=== PATIENT | male | born 1940 | race Caucasian/White ===

== ENCOUNTER 2016-07-26 19:52 | Inpatient (IN) | payer MEDICARE, BC ==
--- NOTE | ~2016-07-26 | CT71 ---
[facility] A Service of [facility] RADIOLOGY TEXT RESULTS PATIENT: DORCAS BOYKIN LOCATION: A : 38 UNIT #: [id number] AGE: [address]: Petar Sandoval MD SEX: M ORDER DR: [id number] [facility] [address]. [place], [place] [address] [id number] I MR#: [id number] Acc #: [id number] NAME: DORCAS BOYKIN. : 1940 SEX: M STUDY DATE/TIME: 07/26/2016 19:41 UNIT: [facility] ROOM: [facility] STUDY DESCRIPTION: CT Head Wo Contrast Attending Physician: Petar Sandoval M.D. Referring Physician: Petar Sandoval M.D. Ordering Physician: Danielle Rondon M.D. Primary Care Physician: Petar Sandoval M.D. MEDICAL IMAGING REPORT This report is preliminary unless electronic signature is present EXAM Noncontrast head CT HISTORY Weakness since 07/25/2016, fell today, confusion. TECHNIQUE This CT examination was performed with one or more of the following radiation dose reduction techniques: automatic exposure control, adjustment of mA and/or kV according to patient size, and iterative reconstruction. FINDINGS Axial noncontrast imaging of the brain demonstrates encephalomalacia left parietal lobe probably related to old vascular insult. Left thalamic lacunar infarct. No mass or hemorrhage. No abnormal extraaxial fluid collections. Right maxillary sinus air-fluid level could represent superimposed sinusitis. There is bilateral ethmoid sinus mucosal disease with some fluid levels, also suggesting acute sinusitis. Mastoids and middle ear cavities unremarkable. IMPRESSION 1. No acute intracranial abnormality identified. 2. Focal encephalomalacia left parietal lobe compatible with old vascular insult. There is also an old left thalamic lacunar infarct. 3. Right maxillary sinus air-fluid level as well as bilateral ethmoid sinus air and fluid, suggesting sinusitis. Dictated by.Bashir Apple M.D. [facility] A Service of [facility] RADIOLOGY TEXT RESULTS PATIENT: DORCAS BOYKIN LOCATION: [place] [address] : 38 UNIT #: [id number] AGE: [address]: Petar Sandoval MD SEX: M ORDER DR: THIS IS AN ELECTRONICALLY VERIFIED REPORT Marilee Apple M.D. at 07/27/2016 8:43 PM MIKEY/paul TD: 07/27/2016 10:14 JOB #: [id number] MEDICAL IMAGING REPORT COPY
--- NOTE | ~2016-07-26 | DS ---
Unit #: [id number] #: [id number] Patient: DORCAS BOYKIN [id number] [address] [address] [id number] I MR#: [id number] NAME: DORCAS BOYKIN. ROOM: 206 Age: 76 Sex: M Admission Date: 07/26/2016 : 1940 Discharge Date: 07/29/2016 Attending Physician: Petar Sandoval M.D. Referring Physician: Petar Sandoval M.D. Primary Care Physician: Petar Sandoval M.D. DISCHARGE SUMMARY PRINCIPAL DISCHARGE DIAGNOSES 1. Acute influenza A. 2. Dehydration. 3. Hypokalemia. 4. Hypertension. 5. Exacerbation of chronic obstructive pulmonary disease. 6. Thrombocytopenia. 7. Hyperlipidemia. 8. Hypertension. 9. 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 10. Possible old inferior wall myocardial infarction by EKG criteria. 11. Microscopic hematuria. PROCEDURES None. CONSULTANTS None. REASON FOR HOSPITALIZATION A 76-year-old white male with history of COPD, hypertension, hyperlipidemia, polio, right upper extremity palsy, kyphoscoliosis, admitted with weakness, mental status changes, fever. In the ER, he was febrile to a temperature of 100.1. Vital signs were stable. Platelets were low at 109,000. BNP was 176. Random blood sugar 126, BUN 28, potassium 3.0. Cardiac enzymes normal. Influenza A positive, influenza B negative. He had 2+ blood and 10 to 25 rbc's on his urinalysis. PT/INR was normal and the patient was admitted. HOSPITAL COURSE The patient was admitted. He was immediately started on Tamiflu, IV fluids, potassium per replacement protocol. Started on Lovenox. Labs were followed. OT/PT was consulted. Wound cultures no growth to date. Chest x-ray on admission showed low lung volumes, but no active disease. There was some cardiomegaly noted as well. CT scan of the head performed in the emergency room showed a focal encephalomalacia, left parietal lobe compatible with an old vascular insult as well as the old left thalamic lacunar infarct. There was right maxillary sinus air-fluid levels consistent with possible sinusitis. His platelets fell. Lovenox was discontinued. He was placed on SCDs for DVT prophylaxis. He quickly improved. He has his strength back. His anorexia has resolved. His mental status cleared. His CBC this morning is normal except for platelet count of 102,000. His BMP is normal except for random blood sugar of 147, but he is on some IV Solu-Medrol for bronchospasm. Magnesium level was Unit #: [id number] #: [id number] Patient: DORCAS BOYKIN normal. He is ambulatory. Room air O2 sats were good. He is being discharged home. He will be on a healthy heart diet. He is to follow up with me in 1 week. He is to hold his statin and blood pressure medications which are not on his med list. Until seen, he is given a prescription for Medrol Dosepak, Tamiflu 75 mg one p.o. b.i.d. for an additional 3 days. He will resume his home inhalers, which I believe Dulera and Combivent unit dose mini nebs. When he follows up in the office, we will repeat a CBC to check his platelet counts and follow up on his microscopic hematuria. He is to call in the meantime for any problems that arise. Dictated by... Petar Sandoval M.D. TAYLER/tomasz TD: 07/29/2016 21:34 JOB #: [id number] DISCHARGE SUMMARY X Petar Sandoval MD X DISCHARGE SUMMARY
--- NOTE | ~2016-07-26 | HP ---
Unit #: [id number] #: [id number] Patient: DORCAS BOYKIN [id number] [address] [address] [id number] I MR#: [id number] NAME: DORCAS BOYKIN. ROOM: 206 Age: 76 Sex: M Admission Date: 07/26/2016 : 1940 Attending Physician: Petar Sandoval M.D. Referring Physician: Petar Sandoval M.D. Primary Care Physician: Petar Sandoval M.D. 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 Recently seen in the office complaining of insomnia and depression, given a prescription for Remeron. Yesterday he became weak, febrile, fell, confused and was brought to the emergency room, found to have acute influenza A and admitted for same. Patient really has no other complaints other than congestion, cough, wheezing, fever and weakness. He states that he did not pass out at home, had no chest pain. He was febrile here in the ER to 100.1, which has defervesced overnight. His room air O2 sat in the ER was 93%. His other labs were unremarkable except for slightly low platelets and potassium, as well as a slightly elevated BUN and some microscopic hematuria. ALLERGIES The patient has no known medical allergies. MEDS PRIOR TO ADMISSION 1. Remeron 15 mg q.h.s. 2. Quinapril. 3. Amlodipine. 4. Hydrochlorothiazide. 5. Pravastatin. 6. DuoNeb. 7. Dulera. NOTE: Doses unknown. SOCIAL HISTORY He is recently , prior smoker. No alcohol or street drug use. The patient is retired. FAMILY HISTORY Family history is noncontributory. PAST SURGICAL HISTORY He has no significant surgical history. PAST MEDICAL HISTORY 1. COPD. 2. Hypertension. 3. Hyperlipidemia. 4. Polio. 5. Right upper extremity palsy. Unit #: [id number] #: [id number] Patient: DORCAS BOYKIN 6. Depression. 7. Insomnia. PHYSICAL EXAMINATION GENERAL: He is awake, alert, oriented x3. ADMISSION VITALS: T max overnight 100.1, pulse 94, respirations 18, blood pressure 141/62, O2 sat 93% on room air. HEENT: Unremarkable. NECK: Neck was supple without JVD, bruits, adenopathy or thyromegaly. CHEST: Diffusely decreased breath sounds with expiratory wheezes. CARDIOVASCULAR: Heart has a regular rate and rhythm without any murmurs, rubs or gallops. ABDOMEN: Abdomen was soft, nondistended, nontender with positive bowel sounds and no hepatosplenomegaly. EXTREMITIES: Extremities showed no clubbing, cyanosis or edema. /RECTAL: Deferred. NEUROLOGIC: Exam is within normal limits except for his obvious right upper extremity palsy. DIAGNOSTIC STUDIES LAB VALUES: CBC normal except for platelet count of 109,000. BNP was 176. Random blood sugar 126. CMP normal except for potassium of 3, blood sugar 136, BUN 28. INR 1.2. Cardiac enzymes normal x1 set. Influenza A positive. Influenza B negative. Urinalysis - Trace protein, 2+ blood, 10-25 RBCs. CARDIOVASCULAR: EKG shows sinus rhythm, first-degree AV block, PACs, left axis deviation, right bundle branch block with inferior Q waves, but I have no old EKGs here for comparison. IMAGING: Chest x-ray - Not sure if it was done. There are no results in the chart. IMPRESSION 1. Acute influenza A. 2. Metabolic encephalopathy secondary to number 1. 3. Hypokalemia. 4. Thrombocytopenia. 5. Microscopic hematuria. 6. Azotemia. 7. COPD. 8. Hypertension. 9. Hyperlipidemia. 10. Right upper extremity palsy secondary to polio. PLAN Potassium/magnesium protocol. IV fluids. P.o. Tamiflu. DuoNeb. Symbicort. Follow platelets, potassium, BUN. PT/OT consults. Chest x-ray if not done in the ER. Compare old EKGs for any changes that might have occurred. Dictated by Petar Sandoval M.D. TAYLER/mandeep TD: 07/27/2016 08:34 Unit #: [id number] #: [id number] Patient: DORCAS BOYKIN JOB #: [id number] HISTORY AND PHYSICAL X Petar Sandoval MD X HISTORY AND PHYSICAL
--- NOTE | ~2016-07-26 | CR72 ---
[facility] A Service of [facility] RADIOLOGY TEXT RESULTS PATIENT: DORCAS BOYKIN LOCATION: A : 38 UNIT #: [id number] AGE: [address]: Petar Sandoval MD SEX: M ORDER DR: [id number] [facility] [address] [facility] [place], [place] [address] [id number] MR#: [id number] #: [id number] NAME: DORCAS BOYKIN : 1940 SEX: M STUDY DATE/TIME: 07/26/2016 19:08 UNIT: [facility] ROOM: [facility] STUDY DESCRIPTION: CR Chest Single View Portable Attending Physician: Petar Sandoval M.D. Referring Physician: Petar Sandoval M.D. Ordering Physician: Danielle Rondon M.D. Primary Care Physician: Petar Sandoval M.D. MEDICAL IMAGING REPORT This report is preliminary unless electronic signature is present EXAM Portable chest HISTORY Shortness of air, weakness, fell today. COMPARISON 09/06/2005 FINDINGS Portable view of the chest demonstrates low lung volumes. No infiltrates or effusions. Cardiomegaly, diffuse aortic atherosclerotic changes. Osseous structures unremarkable for age. Overall no acute findings. Dictated by... Marilee Apple M.D. THIS IS AN ELECTRONICALLY VERIFIED REPORT Marilee Apple M.D. at 07/27/2016 8:42 PM MIKEY/florencio TD: 07/27/2016 09:42 JOB #: [id number] MEDICAL IMAGING REPORT COPY
--- NOTE | ~2016-07-26 | EKG ---
PATIENT: DORCAS BOYKIN UNIT #: [id number] Ventricular Rate: 87 BPM Atrial Rate: 87 BPM P-R Interval: 262 ms QRS Duration: 138 ms Q-T Interval: 416 ms QTC Calculation(Bezet): 500 ms P Rainbow: 6 degrees Calculated R Rainbow: -53 degrees Calculated T Rainbow: -20 degrees Diagnosis Line: Sinus rhythm with 1st degree A-V block with Diagnosis Line: Premature atrial complexes Diagnosis Line: Left axis deviation Diagnosis Line: Right bundle branch block with repolarization Diagnosis Line: abnormality Diagnosis Line: Inferior infarct , age undetermined Diagnosis Line: Abnormal ECG Diagnosis Line: No previous ECGs available Diagnosis Line: Confirmed by VEE NDIAYE MD ([id number]) on 07/27/2016 Diagnosis Line: 5:43:47 PM INTERPRETING MD: SENTHIL MARIE
[2016-07-26 19:15] LABS: BASOPHIL% 0.3 % (0-2.5); DIFF IND NO; HEMATOCRIT 43.4 % (38.0-50.0); HEMOGLOBIN 14.8 gm/dL (13.0-16.0); LYMPHOCYTE# 0.9 X10e3 (1.0-3.5); LYMPHOCYTE% 8.8 % (17.0-45.0); MEAN CELL VOLUME 92.2 FL (83-96); MEAN CORPUSCULAR HEMOGLOBIN 31.4 PG (28-34); MEAN PLATELET VOLUME 8.7 FL (6.5-11.5); MONOCYTE# 0.8 X10e3 (0-1.0); MONOCYTE% 8.2 % (3.0-12.0); NEUTROPHIL# 8.5 X10e3 (1.5-7.1); NEUTROPHIL% 82.7 % (40-75); PLATELET COUNT 109 X10e3 (140-420); RED BLOOD COUNT 4.71 X10e (3.90-5.60); RED CELL DISTRIBUTION WIDTH 13.4 % (11.0-15.5); WHITE BLOOD COUNT 10.3 X10e3 (4.0-10.5)
[2016-07-26 19:36] LABS: ALBUMIN SERUM 3.8 g/dL (3.5-5.0); ALKALINE PHOSPHATASE 43 U/L (32-92); ALT (SGPT) 22 U/L (10-40); AST (SGOT) 26 U/L (10-42); BILIRUBIN, DIRECT 0.2 mg/dL (0.0-0.2); BILIRUBIN,INDIRECT 0.7 mg/dL (0.0-0.9); BILIRUBIN,TOTAL 0.9 mg/dL (0.2-2.0); BLOOD UREA NITROGEN 28 mg/dL (9-23); CALCIUM SERUM 8.5 mg/dL (8.4-10.2); CARBON DIOXIDE 25 mmol/L (22-31); CHLORIDE 101 mmol/L (100-111); GLOM FILT RATE Estimated ABOVE60 mL/min (>60); GLUCOSE FASTING 136 mg/dL (70-110); PROTEIN TOTAL SERUM 6.6 g/dL (6.0-8.3); SODIUM 136 mmol/L (135-145)
[2016-07-26 19:39] LABS: INR 1.2; PROTHROMBIN TIME (PATIENT) 12.5 SECONDS (9.6-11.5)
[2016-07-26 19:45] LABS: POC - CKMB 1.1 ng/mL (0.0-7.9); POC - TROPONIN <0.05 ng/mL (<=0.05)
[2016-07-26 20:40] LABS: INFLUENZA A POS (NEG); INFLUENZA B NEG (NEG)
[2016-07-26 21:13] LABS: URINE SOURCE CLEAN CATCH
[2016-07-26 21:32] LABS: URINE APPEARANCE CLEAR; URINE COLOR YELLOW; URINE GLUCOSE NORM (NEG); URINE LEUKOCYTE ESTERASE NEG (NEG); URINE NITRATE NEG (NEG); URINE PH 5.5 (5-8); URINE PROTEIN TRACE (NEG); URINE SPECIFIC GRAVITY 1.032 (1.003-1.035)
[2016-07-26 21:33] LABS: URINE BILIRUBIN NEG (NEG); URINE BLOOD 2+ (NEG); URINE KETONE TRACE (NEG)
[2016-07-26 21:38] LABS: URINE SQUAMOUS EPITHELIAL CELL FEW /[HPF]; UWBCS1 AUWI 0-2 (0-5)
[2016-07-26 21:39] LABS: CULTURE INDICATED? NO
[2016-07-27 09:21] LABS: MAGNESIUM 1.9 mg/dL (1.6-3.0); POTASSIUM 3.2 mmol/L (3.5-5.1)
[2016-07-28 04:33] LABS: HEMATOCRIT 37.2 % (38.0-50.0); MEAN CORPUSCULAR HEMOGLOBIN 31.4 PG (28-34); MEAN CORPUSCULAR HGB CONC 34.1 g/dL (30-36); MEAN PLATELET VOLUME 8.6 FL (6.5-11.5); RED BLOOD COUNT 4.04 X10e (3.90-5.60); RED CELL DISTRIBUTION WIDTH 13.4 % (11.0-15.5)
[2016-07-28 04:47] LABS: HEMOGLOBIN 12.7 gm/dL (13.0-16.0); WHITE BLOOD COUNT 4.3 X10e3 (4.0-10.5)
[2016-07-28 04:54] LABS: BLOOD UREA NITROGEN 19 mg/dL (9-23); BUN/CREATININE RATIO 21.11; CALCIUM SERUM 7.6 mg/dL (8.4-10.2); CARBON DIOXIDE 25 mmol/L (22-31); CHLORIDE 107 mmol/L (100-111); CREATININE SERUM 0.9 mg/dL (0.6-1.4); GLOM FILT RATE Estimated ABOVE60 mL/min (>60); GLUCOSE FASTING 97 mg/dL (70-110); POTASSIUM 3.5 mmol/L (3.5-5.1); SODIUM 138 mmol/L (135-145)
[2016-07-29 06:16] LABS: HEMATOCRIT 42.4 % (38.0-50.0); HEMOGLOBIN 14.2 gm/dL (13.0-16.0); MEAN CELL VOLUME 93.3 FL (83-96); MEAN CORPUSCULAR HEMOGLOBIN 31.3 PG (28-34); MEAN CORPUSCULAR HGB CONC 33.5 g/dL (30-36); MEAN PLATELET VOLUME 9.5 FL (6.5-11.5); RED BLOOD COUNT 4.54 X10e (3.90-5.60); RED CELL DISTRIBUTION WIDTH 13.4 % (11.0-15.5)
[2016-07-29 06:19] LABS: WHITE BLOOD COUNT 9.2 X10e3 (4.0-10.5)
[2016-07-29 06:49] LABS: BLOOD UREA NITROGEN 17 mg/dL (9-23); BUN/CREATININE RATIO 24.28; CALCIUM SERUM 8.4 mg/dL (8.4-10.2); CARBON DIOXIDE 24 mmol/L (22-31); CHLORIDE 109 mmol/L (100-111); CREATININE SERUM 0.7 mg/dL (0.6-1.4); GLOM FILT RATE Estimated ABOVE60 mL/min (>60); GLUCOSE FASTING 147 mg/dL (70-110); POTASSIUM 4.3 mmol/L (3.5-5.1); SODIUM 142 mmol/L (135-145)
[2016-07-29] MEDS ORDERED: TYL325 PO (12:52)
[2016-07-29] MEDS ORDERED: TAMIFLU75 M1 PO (12:52)
[2016-07-29] MEDS ORDERED: MEDROL DOSEPAK4 MG PO (12:53)
== END 2016-07-29 13:13 | disposition home or self-care (01) | DRG 152 ==
LOC: CED 19:52 → CEDOF 22:50 → C2A 23:59
PROVIDERS: Emergency Medicine; Internal Medicine
DX: J11.1 Influenza due to unidentified influenza virus with other respiratory manifestations (principal); G93.41 Metabolic encephalopathy; E86.0 Dehydration; D69.6 Thrombocytopenia, unspecified; J44.1 Chronic obstructive pulmonary disease with (acute) exacerbation; E87.6 Hypokalemia; I10 Essential (primary) hypertension; E78.5 Hyperlipidemia, unspecified; Z86.73 Personal history of transient ischemic attack (TIA), and cerebral infarction without residual deficits; R31.21 Asymptomatic microscopic hematuria; Z86.12 Personal history of poliomyelitis
CPT/HCPCS: 36415; 51702; 70450; 71010; 80048; 80076; 81003; 82553; 82947; 83735; 83880; 84132; 84484; 85025; 85027; 85610; 87040; 87804; 93005; 94640; 94760; 96365; 97162; 97166; 99285; G8978-GP; G8979-GP; G8980-GP; G8987-GO; G8988-GO; G8989-GO; J1650; J2930; J3475

== ENCOUNTER → 2016-12-05 | Outpatient (CLI) | payer MEDICARE, BC ==
[~2016-12-05] MED LIST: MEDROL DOSEPAK4 MG PO; TAMIFLU75 M1 PO; TYL325 PO
== END | disposition home or self-care (01) ==
LOC: CECH 12:32
DX: R06.00 Dyspnea, unspecified (principal); R60.9 Edema, unspecified
CPT/HCPCS: 93306